=== PATIENT | male | born 1950 | race Caucasian/White ===

== ENCOUNTER 2017-09-24 12:42 | Emergency (ER) | payer OTHER ==
[~2017-09-24] VITALS: Ht 172.7 cm; Wt 73.5 kg
[2017-09-24 12:50] VITALS: TEMP 36.6; Ht 172.7 cm; Wt 73.5 kg
--- NOTE | 2017-09-24 13:02 | EMERGENCY ROOM VISIT NOTE ---
History Report prepared by Mario: Hardik Santillan Under the Supervision of: Dr. Jeffrey Cheatham M.D. First contact with patient: 12:48 Stated Complaint: FALL History of Present Illness The patient is a 67 year old male who presents to the Emergency Room with complaints of two sudden falls occurring prior to arrival. The patient states that he was walking up some stairs, and he tripped up them. The patient states that he did not hit his head. He additionally notes that he has been drinking whiskey and beers today. He denies any neck pain. The patient has a history of a heart valve repair, though he is not on any blood thinners. He denies any history of heart attacks. Source of History: patient Onset: prior to arrival Position: other (global) Quality: other Timing: other (sudden) Associated Symptoms: No neck pain Review of Systems See HPI for pertinent positives & negatives. A total of 10 systems reviewed and were otherwise negative. Past Medical & Surgical Surgical Problems: (1) History of heart valve repair Social History Marital Status: Housing Status: lives with family Occupation Status: retired Current/Historical Medications Scheduled Aspirin (Aspirin Ec), 81 MG PO DAILY Citalopram Hydrobromide (Celexa), 20 MG PO DAILY Donepezil Hydrochloride (Aricept), 10 MG PO DAILY Scheduled PRN Clonazepam (Klonopin), 0.5 MG PO TID PRN for PRN Allergies Coded Allergies: No Known Allergies (Unverified , 09/24/17) Physical Exam Vital Signs Date Time Temp Pulse Resp B/P (MAP) Pulse Ox O2 Delivery O2 Flow Rate FiO2 09/24/17 14:27 71 16 104/65 99 09/24/17 12:53 77 09/24/17 12:50 36.6 71 18 116/74 98 Room Air Physical Exam GENERAL: Patient is heavily intoxicated. Smells of alcohol. Well appearing and in no acute distress. HEAD: No evidence of Trauma. AT/NC EYES: Injected conjunctiva. Normal EOM. Pupils equal/reactive. ENT: Mucous membranes moist, no nasal congestion, . NECK: No step-offs, no adenopathy, no meningismus, trachea is midline. LUNGS: No dyspnea. Clear to auscultation and equal bilaterally. No wheeze, no rhonchi. HEART: Regular rate and rhythm. No murmurs, rubs, gallops appreciated. ABDOMEN: Soft, nontender, bowel sounds positive, no masses appreciated, no peritonitis. BACK: No midline tenderness, no CVA tenderness EXTREMITIES: Normal motion all extremities, no cyanosis, no edema. NEUROLOGIC: Slurred speech. Heavily intoxicated. No acute motor or sensory deficits, no focal weakness, cranial nerves grossly intact. SKIN: No rash, no jaundice, no diaphoresis. Medical Decision & Procedures ER Provider Diagnostic Interpretation: Radiology results and stated below per my review and radiologist interpretation: HEAD WITHOUT CONTRAST (CT) CLINICAL HISTORY: 67 years-old Male presenting with multiple falls, etoh. TECHNIQUE: Multidetector CT imaging of the head was performed without the use of intravenous contrast. IV contrast: None. A dose lowering technique was used consistent with the principles of ALARA (as low as reasonably achievable). COMPARISON: None. CT DOSE (mGy.cm): The estimated cumulative dose is 537.48 mGy.cm. FINDINGS: Exerciser Horse topogram: Unremarkable. Proportional ventricular and sulcal prominence, likely age-related parenchymal volume loss. Periventricular and subcortical white matter hypoattenuation, nonspecific but likely indicative of chronic small vessel ischemic change. No mass effect or midline shift. No hemorrhage or acute territorial infarct. Prominent extra-axial space with CSF density over the bilateral cerebral convexities likely related to age related diffuse cerebral atrophy no convincing evidence of extra-axial collection. Paranasal sinuses and mastoid air cells clear. Calvarium intact. IMPRESSION: 1. No acute intracranial pathology. Electronically signed by: Gabriel Coleman M.D. 09/24/2017 1:31 PM Dictated Date/Time: 09/24/2017 1:29 PM CHEST ONE VIEW PORTABLE CLINICAL HISTORY: 67 years-old Male presenting with multiple falls, etoh. TECHNIQUE: Portable upright AP view of the chest was obtained. COMPARISON: None. FINDINGS: Cardiomediastinal silhouette normal. Lungs and pleural spaces clear. Osseous structures normal. Upper abdomen normal. IMPRESSION: 1. No acute cardiopulmonary disease. Electronically signed by: Gabriel Coleman M.D. 09/24/2017 2:04 PM Dictated Date/Time: 09/24/2017 2:03 PM Laboratory Results 09/24/17 13:07 Red Blood Count 4.02, Mean Corpuscular Volume 98.8, Mean Corpuscular Hemoglobin 34.6, Mean Corpuscular Hemoglobin Concent 35.0, Mean Platelet Volume 9.2, Neutrophils (%) (Auto) 69.4, Lymphocytes (%) (Auto) 21.2, Monocytes (%) (Auto) 7.8, Eosinophils (%) (Auto) 0.2, Basophils (%) (Auto) 1.2, Neutrophils # (Auto) 4.20, Lymphocytes # (Auto) 1.28, Monocytes # (Auto) 0.47, Eosinophils # (Auto) 0.01, Basophils # (Auto) 0.07 09/24/17 13:07 Test 09/24/17 13:07 White Blood Count 6.04 K/uL (4.8-10.8) Red Blood Count 4.02 M/uL (4.7-6.1) Hemoglobin 13.9 g/dL (14.0-18.0) Hematocrit 39.7 % (42-52) Mean Corpuscular Volume 98.8 fL (80-100) Mean Corpuscular Hemoglobin 34.6 pg (25-34) Mean Corpuscular Hemoglobin Concent 35.0 g/dl (32-36) Platelet Count 190 K/uL (130-400) Mean Platelet Volume 9.2 fL (7.4-10.4) Neutrophils (%) (Auto) 69.4 % Lymphocytes (%) (Auto) 21.2 % Monocytes (%) (Auto) 7.8 % Eosinophils (%) (Auto) 0.2 % Basophils (%) (Auto) 1.2 % Neutrophils # (Auto) 4.20 K/uL (1.4-6.5) Lymphocytes # (Auto) 1.28 K/uL (1.2-3.4) Monocytes # (Auto) 0.47 K/uL (0.11-0.59) Eosinophils # (Auto) 0.01 K/uL (0-0.5) Basophils # (Auto) 0.07 K/uL (0-0.2) RDW Standard Deviation 46.0 fL (36.4-46.3) RDW Coefficient of Variation 12.7 % (11.5-14.5) Immature Granulocyte % (Auto) 0.2 % Immature Granulocyte # (Auto) 0.01 K/uL (0.00-0.02) Anion Gap 6.0 mmol/L (3-11) Est Creatinine Clear Calc Drug Dose 72.2 ml/min Estimated GFR () 94.4 Estimated GFR (Non- 81.5 BUN/Creatinine Ratio 16.1 (10-20) Calcium Level 9.1 mg/dl (8.5-10.1) Troponin I < 0.015 ng/ml (0-0.045) Ethyl Alcohol mg/dL 277.4 mg/dl (0-3) Laboratory results as reviewed by me. ECG Indication: toxicologic, other (fall) Rate (beats per minute): 70 Rhythm: normal sinus Findings: no acute ischemic change, no ectopy ED Course 1248: The patient was evaluated in room A11. A complete history and physical exam was performed. 1435: I reevaluated the patient, and he was awake, talking, and in no distress. He knows where he is at. His friend, who is sober, will take him home, and they will not drink anymore today. The patient was discharged home. Medical Decision Differential: Alcohol Intoxication, Drug Intoxication, Electrolyte Abnormality, Trauma, Intracranial Event, Toxicological, Excited Delirium, Serotonin Syndrome , amongst other pathologies entertained. 67 yr old male arrives for evaluation of falling. Admits ETOH use and initially seemed quite intoxicated though after 2 hours was sobering up some and A&O. He has normal CT head, normal labs, no evidence ACS, clear CXR and positive Etoh. He has a sober friend here with him. I discussed my concerns regarding his alcohol intake, especially with his PMH. I discussed fact he needs to discuss this event with his and primary care provider. Aware RTED at any time if worsening or other concerns. Medication Reconcilliation Current Medication List: was personally reviewed by me Blood Pressure Screening Patient's blood pressure: Normal blood pressure Impression Primary Impression: Alcohol intoxication Additional Impression: Fall Scribe Attestation The scribe's documentation has been prepared under my direction and personally reviewed by me in its entirety. I confirm that the note above accurately reflects all work, treatment, procedures, and medical decision making performed by me. Departure Information Dispostion Home / Self-Care Forms HOME CARE DOCUMENTATION FORM, IMPORTANT VISIT INFORMATION Additional Instructions You were evaluated in emergency department for intoxication. This is a sign of Alcohol Abuse and should not be taken lightly. You had a blood alcohol level that was significantly elevated. Over the next 24 hours keep well hydrated and eat light meals. Don't drink any more alcohol. This is important. Please discuss this visit with your Primary Care Provider, and/or your loved ones. Call 911 or return to Emergency Department if you develop: Passing out, difficulty breathing, many episodes of vomiting, blood in vomit or stool, abdominal pain, fevers, or other severe symptoms. We are always here to help if you feel you need further evaluation or treatment. Problem Qualifiers
[2017-09-24 13:22] LABS: BASO % 1.2 %; BASO ABS # 0.07 K/uL (0-0.2); COMPLETE YES; EOS % 0.2 %; HEMATOCRIT 39.7 % (42-52); IG% 0.2 %; LYMPH % 21.2 %; LYMPH ABS # 1.28 K/uL (1.2-3.4); MEAN CELL VOLUME 98.8 fL (80-100); MEAN CORPUSCULAR HEMOGLOBIN 34.6 pg (25-34); MEAN PLATELET VOLUME 9.2 fL (7.4-10.4); MONO % 7.8 %; NEUT % 69.4 %; PLATELET COUNT 190 K/uL (130-400); RED BLOOD COUNT 4.02 M/uL (4.7-6.1); WHITE BLOOD COUNT 6.04 K/uL (4.8-10.8)
[2017-09-24] MEDS ORDERED: CLON0.5T3 PO (13:29)
[2017-09-24] MEDS ORDERED: CITA20TA9 PO (13:29)
[2017-09-24] MEDS ORDERED: ASPI81TA28 PO (13:29)
[2017-09-24] MEDS ORDERED: DONE10TA12 PO (13:29)
--- NOTE | 2017-09-24 13:33 | DIAGNOSTIC IMAGING REPORT ---
HEAD WITHOUT CONTRAST (CT) CLINICAL HISTORY: 67 years-old Male presenting with multiple falls, etoh. TECHNIQUE: Multidetector CT imaging of the head was performed without the use of intravenous contrast. IV contrast: None. A dose lowering technique was used consistent with the principles of ALARA (as low as reasonably achievable). COMPARISON: None. CT DOSE (mGy.cm): The estimated cumulative dose is 537.48 mGy.cm. FINDINGS: Wallpaper Scraper topogram: Unremarkable. Proportional ventricular and sulcal prominence, likely age-related parenchymal volume loss. Periventricular and subcortical white matter hypoattenuation, nonspecific but likely indicative of chronic small vessel ischemic change. No mass effect or midline shift. No hemorrhage or acute territorial infarct. Prominent extra-axial space with CSF density over the bilateral cerebral convexities likely related to age related diffuse cerebral atrophy no convincing evidence of extra-axial collection. Paranasal sinuses and mastoid air cells clear. Calvarium intact. IMPRESSION: 1. No acute intracranial pathology. Electronically signed by: Gabriel Coleman M.D. 09/24/2017 1:31 PM Dictated Date/Time: 09/24/2017 1:29 PM
[2017-09-24 13:41] LABS: BLOOD UREA NITROGEN 16 mg/dl (7-18); BUN/CREATININE RATIO 16.1 (10-20); CALCIUM 9.1 mg/dl (8.5-10.1); CARBON DIOXIDE 28 mmol/L (21-32); CHLORIDE 107 mmol/L (98-107); CREATININE 0.96 mg/dl (0.60-1.40); GLUCOSE 81 mg/dl (70-99); POTASSIUM 3.6 mmol/L (3.5-5.1); SODIUM 142 mmol/L (136-145)
--- NOTE | 2017-09-24 14:05 | DIAGNOSTIC IMAGING REPORT ---
CHEST ONE VIEW PORTABLE CLINICAL HISTORY: 67 years-old Male presenting with multiple falls, etoh. TECHNIQUE: Portable upright AP view of the chest was obtained. COMPARISON: None. FINDINGS: Cardiomediastinal silhouette normal. Lungs and pleural spaces clear. Osseous structures normal. Upper abdomen normal. IMPRESSION: 1. No acute cardiopulmonary disease. Electronically signed by: Gabriel Coleman M.D. 09/24/2017 2:04 PM Dictated Date/Time: 09/24/2017 2:03 PM
[2017-09-24 14:27] VITALS: BP 104/65; PULSE 71; O2SAT 99
== END 2017-09-24 14:40 | disposition home or self-care (01) ==
LOC: EDBD 12:42 → C.EDA 12:43
DX: F10.129 Alcohol abuse with intoxication, unspecified (principal); W10.8XXA Fall (on) (from) other stairs and steps, initial encounter; Z79.82 Long term (current) use of aspirin; Y90.8 Blood alcohol level of 240 mg/100 ml or more